=== PATIENT | female | born 1945 | race Caucasian/White ===

== ENCOUNTER 2016-08-25 09:20 | Emergency (ER) | payer OTHER ==
--- NOTE | ~2016-08-25 | CR210 ---
[facility] A Service of [facility] RADIOLOGY TEXT RESULTS PATIENT: PAUL MICHEL LOCATION: [place] : 47 UNIT #: [id number] AGE: [address]: Thee Montejo MD SEX: F ORDER DR: [id number] [facility] [address] [place], [place] [address] [id number] MR#: [id number] Acc #: [id number] NAME: PAUL MICHEL : 1945 SEX: F STUDY DATE/TIME: 08/25/2016 UNIT: [facility] ROOM: STUDY DESCRIPTION: CR Ribs Uni 2 View W PA Ch Lt Attending Physician: Thee Montejo M.D. Ordering Physician: Thee Montejo M.D. Primary Care Physician: Susanne Reynolds M.D. MEDICAL IMAGING REPORT This report is preliminary unless electronic signature is present EXAM Chest with left rib series 08/25/2016 1010 hours. HISTORY Patient fell 1 week ago; complaining of persistent lower left rib pain. COMPARISON 12/28/2014 FINDINGS Upright view of the chest demonstrates normal cardiac, mediastinal and hilar contours. The lungs are clear, and there are no effusions. There is no pneumothorax. AP and oblique views of the left ribs demonstrate some osteopenia. No definite rib fracture seen. IMPRESSION 1. No acute cardiopulmonary findings. No pleural effusion or pneumothorax. 2. The bones are mildly osteopenic, which makes assessment of the ribs somewhat difficult. No displaced rib fracture is seen. Dictated by... Tania Palma M.D. THIS IS AN ELECTRONICALLY VERIFIED REPORT Tania Palma M.D. at 08/25/2016 2:09 PM LEELEE/dominique TD: 08/25/2016 11:50 [facility] A Service of [facility] RADIOLOGY TEXT RESULTS PATIENT: PAUL MICHEL LOCATION: [facility] : 47 UNIT #: [id number] AGE: [address]: Thee Montejo MD SEX: F ORDER DR: JOB #: [id number] MEDICAL IMAGING REPORT Page 1 of 1 COPY
[~2016-08-25 09:20] MED LIST: ASPIRIN PO; ASPIRIN81 M2 PO; AVAPRO PO; AVAPRO300 M1 PO; CALCIUM/MAG/ZINC; CARVEDILOL25 MG PO; CERTAGEN PO; COREG PO; FISH OIL 1,0001 CAP PO; FISH OIL 1,0001 EAC1 PO; HCTZ PO; HYDROCHLOROTHIA25 MG PO; LIPITOR PO; NORVASC PO; PERCOCET5/325 PO; PHENERGAN PO; POSTURE600 MG PO; SIMVASTATIN40 MG PO; VITAMIN D2000 UNIT PO; [UNRECOGNIZED DRUG - OTHER]
== END 2016-08-25 11:10 | disposition home or self-care (01) ==
LOC: CED 09:20
DX: S20.212A Contusion of left front wall of thorax, initial encounter (principal); W01.0XXA Fall on same level from slipping, tripping and stumbling without subsequent striking against object, initial encounter; Y92.009 Unspecified place in unspecified non-institutional (private) residence as the place of occurrence of the external cause; I10 Essential (primary) hypertension; E78.5 Hyperlipidemia, unspecified
CPT/HCPCS: 71101; 99283